=== PATIENT | female | born 1955 | race Caucasian/White ===

== ENCOUNTER 2021-09-19 10:28 | Day surgery (SDCO) | payer OTHER ==
[~2021-09-19] VITALS: Ht 165.1 cm; Wt 70.3 kg
[~2021-09-19 10:28] MED LIST: NORCO 5-325 TA1 EACH PO
[2021-09-19 11:28] LABS: BASOPHIL 0.4 % (0-2); EOSINOPHIL 0.8 % (0-7); HCT 48.4 % (37.0-47.0); HGB 15.1 g/dl (12.5-16.0); LYMPHOCYTE 9.5 % (15-48); MCH 28.6 pg (25.0-31.0); MCHC 31.2 g/dL (32.0-36.0); MCV 91.7 fL (78.0-100.0); MONOCYTE 13.4 % (0-12); MPV 10.6 fL (6.0-9.5); NEUTROPHIL 75.7 % (41-80); NRBC 0; PLT 282 K/uL (150-400); RBC 5.28 M/uL (4.20-5.40); RDW 13.5 % (11.5-14.0)
[2021-09-19 12:18] LABS: BILIRUBIN - TOTAL 0.4 mg/dL (0.2-1.0); BUN/CREAT RATIO (CALC) 13.8 RATIO; CREATININE 1.09 mg/dL (0.51-0.95); POTASSIUM 4.3 mmol/L (3.5-5.1)
[2021-09-19 12:22] LABS: LACTIC ACID 1.3 mmol/L (0.4-1.9)
[2021-09-19 12:26] LABS: BILIRUBIN 2+ mg/dL (NEGATIVE); BLOOD NEGATIVE Ery/uL (NEGATIVE); CLARITY CLOUDY (CLEAR); COLOR YELLOW (YELLOW); GLUCOSE (U) NORMAL (NORMAL); LEUKOCYTES NEGATIVE Leu/uL (NEGATIVE); NITRITE NEGATIVE (NEGATIVE); PROTEIN 2+ mg/dL (NEGATIVE); SPECIFIC GRAVITY >=1.030 (1.001-1.030)
[2021-09-19 12:48] LABS: BACTERIA TRACE; CALCIUM OXALATE CRYSTALS MODERATE; MUCOUS TRACE
[2021-09-19] MEDS ORDERED: PRILOSEC20 MG PO (17:02)
[2021-09-19] MEDS ORDERED: WELLBUTRIN SR150 MG PO (17:03)
[2021-09-19] MEDS ORDERED: SYNTHROID125 MCG PO (17:04)
[2021-09-19] MEDS ORDERED: LOPRESSOR25 MG PO (17:05)
[2021-09-19] MEDS ORDERED: RESTASIS MULTI5.5 ML TOP (17:06)
[2021-09-19] MEDS ORDERED: THEOPHYLLINE 3300 MG PO (17:08)
[2021-09-19] MEDS ORDERED: ZETIA10 MG PO (17:08)
[2021-09-19] MEDS ORDERED: CRESTOR40 MG PO (17:09)
[2021-09-19] MEDS ORDERED: COMBIVENT RESPIM4 GM PO (17:10)
[2021-09-20 08:23] LABS: CREATININE 0.84 mg/dL (0.51-0.95); POTASSIUM 3.9 mmol/L (3.5-5.1)
--- NOTE | 2021-09-20 10:20 | NUR ---
09/20/21 Ms. Tatum is a 66 y/o woman admitted with dx of COPD exacerbation. She has her own home. However, she has been staying with a friend, Charis Canada at [address] [place] [address]. - Ms. Tatum is independent in the home and community. - Africa Randall is her PCP. - Ms. Tatum reports to experience depression. Her spouse dies in 2009, her daughter in 2016, and her dog yesterday. She denies suicidal ideations, intentions or attempts. - Ms. Tatum is able to meet her financial obligations. - She is followed by Dr. Chadwick r/t history of lung cancer. She completed her treatment. - Ms. Tatum was was provided with a list of counseling services and crisis hotline.
--- NOTE | 2021-09-20 13:00 | NUR ---
09/20/21 A referral was made to [facility] for the prn order to be changed to continuous at 2L. [facility] will deliver a portable tank.
[2021-09-21 07:20] LABS: HCT 37.2 % (37.0-47.0); HGB 11.9 g/dl (12.5-16.0); MCH 29.2 pg (25.0-31.0); MCV 91.4 fL (78.0-100.0); MPV 9.7 fL (6.0-9.5); RBC 4.07 M/uL (4.20-5.40); RDW 13.5 % (11.5-14.0); WBC 10.4 K/uL (4.0-10.5)
[2021-09-21 07:44] LABS: BUN/CREAT RATIO (CALC) 20.2 RATIO; CREATININE 0.99 mg/dL (0.51-0.95); POTASSIUM 3.7 mmol/L (3.5-5.1)
[2021-09-22] MEDS ORDERED: AZITHROMYCIN250 MG PO (09:29)
[2021-09-22] MEDS ORDERED: THEOPHYLLINE400 MG PO (09:29)
[2021-09-22] MEDS ORDERED: CEFDINIR300 MG PO (09:29)
[2021-09-22] MEDS ORDERED: DUONEB 2.5-0.5M1 AMP NEB (09:29)
[2021-09-22] MEDS ORDERED: PREDNISONE 20MG20 MG PO (11:40)
== END 2021-09-22 10:12 | disposition home or self-care (01) ==
LOC: FER 10:28 → FMS 14:49
PROVIDERS: Emergency Medicine; Nurse Practitioner; ADMIT Allergy & Immunology Allergy
DX: J44.1 Chronic obstructive pulmonary disease with (acute) exacerbation (principal); R00.0 Tachycardia, unspecified; E78.5 Hyperlipidemia, unspecified; I12.9 Hypertensive chronic kidney disease with stage 1 through stage 4 chronic kidney disease, or unspecified chronic kidney disease; N18.9 Chronic kidney disease, unspecified; K21.9 Gastro-esophageal reflux disease without esophagitis; E03.9 Hypothyroidism, unspecified; Z20.822 Contact with and (suspected) exposure to COVID-19; Z85.118 Personal history of other malignant neoplasm of bronchus and lung; Z92.21 Personal history of antineoplastic chemotherapy; Z92.3 Personal history of irradiation; Z98.51 Tubal ligation status; Z90.710 Acquired absence of both cervix and uterus; Z87.891 Personal history of nicotine dependence; Z80.1 Family history of malignant neoplasm of trachea, bronchus and lung; Z88.5 Allergy status to narcotic agent; Z88.8 Allergy status to other drugs, medicaments and biological substances
CPT/HCPCS: 36415; 36600; 71045; 71275; 80048; 80053; 80198; 81001; 82803; 83605; 84443; 84484; 85025; 85379; 87040; 93005; 94010; 94640; 94667; 94668; A4216; G0378; J0456; J0696; J1650; J2405; J2930; J7030; J7050; J7512; Q9967; U0002